=== PATIENT | female | born 1995 | race Caucasian/White ===

== ENCOUNTER 2024-10-17 08:43 | Emergency (ER) | payer SELFPAY ==
[2024-10-17 08:44] VITALS: BP 105/77
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
[2024-10-17 10:52] LABS: HCG, Urine Qualitative Screen Negative
[2024-10-17] MEDS: TYLENOL 1000 MG PO (10:53)
== END 2024-10-17 13:05 | disposition home or self-care (01) ==
LOC: EMR 08:43
PROVIDERS: EMERGENCY PHYSICIAN Emergency Medicine
DX: S13.4XXA Sprain of ligaments of cervical spine, initial encounter (principal); R07.89 Other chest pain; V89.2XXA Person injured in unspecified motor-vehicle accident, traffic, initial encounter
CPT/HCPCS: 99285; 71046; 72125; 81025